=== PATIENT | female | born 1955 | race Caucasian/White ===

== ENCOUNTER 2017-09-26 09:43 | Day surgery (SDC) | payer OTHER ==
[~2017-09-26 09:43] MED LIST: ACIDO FOLICO; ALTACE10 MG; ATENOLOL25 GM; ECOTRIN81 MG; FORTAMET1000 MG; GLIMEPIRIDE2 MG
[2017-09-26] MEDS ORDERED: MOTRIN IB200 MG PO (14:54)
== END 2017-09-26 19:50 | disposition home or self-care (01) ==
LOC: CIR.AMB 09:43
DX: N84.0 Polyp of corpus uteri (principal)